=== PATIENT | male | born 1970 | race Caucasian/White ===

== ENCOUNTER 2023-07-13 13:32 | Emergency (ER) | payer BC ==
[~2023-07-13] VITALS: Ht 182.9 cm; Wt 81.6 kg
[2023-07-13] MEDS ORDERED: PHENYLEPHRINE HCL NASAL SPRAY 15 ML BOTTLE NS ONE (14:00)
[2023-07-13] MEDS ORDERED: PHENYLEPHRINE 0.5% NASAL SPRAY 15 ML BOTTLE NS ONE (14:01)
[2023-07-13 14:49] VITALS: BP 141/81; TEMP 97.8; O2SAT 99
== END 2023-07-13 14:50 | disposition home or self-care (01) ==
LOC: ER 13:34
DX: R04.0 Epistaxis (principal)